=== PATIENT | male | born 1970 | race Caucasian/White ===

== ENCOUNTER 2018-03-30 06:29 | Emergency (ER) | payer OTHER ==
[2018-03-30] MEDS ORDERED: Cyclobenzaprine TAB* 10 MG PO ONE (06:47)
[2018-03-30] MEDS ORDERED: HYDROcodone/ACETAMIN 5-325 MG* 1 TAB PO ONE (06:48)
--- NOTE | 2018-03-30 08:26 | ED ---
Progress - Progress Note Progress Note: I supervised the PA and performed a history and physical exam on this patient. I performed the procedure on this patient. History: [employer] who routinely lifts heavy stuff with bilateral low back pain without radiation Physical exam: Tenderness and spasm and bilateral paralumbar musculature. No saddle anesthesia. Stands and walks normally. Plan: Trigger point injections here by me, treat symptomatically and refer to career technical education teacher. Procedure: Trigger point injection: The patient was consented and his bilateral lumbar musculature was cleaned with alcohol. Triggerpoints are identified and injected through a 25-gauge needle. A total of 5 cc of 1% lidocaine was mixed with 10 cc of 0.5% bupivacaine with epinephrine was utilized. The patient's pain was greatly improved after it this was massaged through the tissues. His range of motion improved. He tolerated this well without complication. Course/Dx - Diagnoses Provider Diagnoses: Muscle spasm Discharge - Sign-Out/Discharge Documenting (check all that apply): Patient Departure - Discharge Plan Condition: Stable Disposition: HOME Prescriptions: Cyclobenzaprine TAB* [Flexeril TAB*] 10 mg PO TID #21 tab Hydrocodone/Acetamin 10/325(NF [[place] 10/325 (NF)] 1 tab PO Q6H #12 tab MDD 4 Ketorolac TAB * [Toradol TAB *] 10 mg PO Q6H #16 tab predniSONE TAB* [Deltasone TAB*] 50 mg PO DAILY #5 tab MDD 1 Patient Education Materials: Muscle Spasm (ED), Lower Back Exercises (ED) Forms: *Work Release Referrals: Noe MATTSON,John Brown [Primary Care Provider] - Additional Instructions: Please see career technical education teacher and/or physical therapy for worsening symptoms Hydrocodone up to every 6 hours as needed for pain Toradol up to every 6 hours as needed for pain Please take these intermittently You may also take tylenol 650mg three times daily simultaneously with toradol Moist heat to the area 3 days off work Flexeril 10mg up to three times daily for muscle spasms Do not drive with these medications Gentle stretches will help - Billing Disposition and Condition Condition: STABLE Disposition: Home - Attestation Statements Document Initiated by Scribe: Yes Documenting Scribe: Keyanna Kraus Provider For Whom Scribe is Documenting (Include Credential): Dr. Marco Bentley MD Scribe Attestation: I, Keyanna Kraus, scribed for Dr. Marco Bentlye MD on 03/30/18 at 1447. Scribe Documentation Reviewed: Yes Provider Attestation: The documentation as recorded by the scribeKeyanna accurately reflects the service I personally performed and the decisions made by me, Dr. Marco Bentley MD
[2018-03-30] MEDS ORDERED: predniSONE TAB* 20 MG PO ONE (08:29)
[2018-03-30 08:37] VITALS: BP 149/84
[2018-03-30] MEDS ORDERED: Ketorolac INJ* 60 MG/2 ML VIAL IM ONE (08:38)
[2018-03-30] MEDS ORDERED: Acetaminophen TAB* 325 MG PO ONE (08:38)
--- NOTE | 2018-03-30 09:15 | ED ---
Back Pain - HPI Summary HPI Summary: Patient is a 48-year-old otherwise healthy male presenting to the ED with bilateral lower back pain acute onset this evening after working all night and standing on his feet. He also endorses lifting heavy objects throughout the evening. Denies any "popping sound." Denies any known injury. He states the back began to hurt him approximately at 9 PM and continued throughout his shift , only worsening. He is now endorsing pain 10/10, constant and throbbing. He endorses "spasms." He has never injured the back before. The pain is most notably located over the bilateral lower back without spinal involvement. Denies any foot drop, bladder or bowel dysfunction, numbness or tingling. - History of Current Complaint Chief Complaint: EDBackInjuryPain Stated Complaint: BACK INJURY Time Seen by Provider: 03/30/18 06:36 Hx Obtained From: Patient Onset/Duration: Sudden Onset Onset/Duration: Started Hours Ago Timing: Constant Back Pain Location: Is Discrete @ - lower back bilaterally Pain Intensity: 5 Pain Scale Used: 0-10 Numeric Character: Aching Aggravating Symptom(s): Movement Alleviating Symptom(s): Rest Associated Signs And Symptoms: Negative: Swelling, Redness, Bruising, Weakness, Numbness, Bladder Incontinence, Bowel Incontinence, Weight Loss, Pain with Weight Bearing - Risk Factors AAA Risk Factors: Negative TAD Risk Factors: Negative Cauda Equina Risk Factors: Negative Epidural Abscess Risk Factors: Negative - Allergies/Home Medications Allergies/Adverse Reactions: Allergies Allergy/AdvReac Type Severity Reaction Status Date / Time No Known Allergies Allergy Verified 03/13/16 10:23 PMH/Surg Hx/FS Hx/Imm Hx Previously Healthy: Yes GI History: Reports: Hx Gastroesophageal Reflux Disease, Hx Irritable Bowel - Immunization History Hx Pertussis Vaccination: No Immunizations Up to Date: Yes Infectious Disease History: No Infectious Disease History: Denies: Traveled Outside the [place] in Last 30 Days - Family History Known Family History: Positive: None - Denies family h/o heart disease/dm - Social History Occupation: Employed Full-time Lives: With Family Alcohol Use: Daily Alcohol Amount: 3-6 drinks per day Hx Substance Use: No Substance Use Type: Reports: None Hx Tobacco Use: No Smoking Status (MU): Never Smoked Tobacco Review of Systems Constitutional: Negative Negative: Fever, Chills, Fatigue, Skin Diaphoresis Negative: Palpitations, Chest Pain Negative: Shortness Of Breath, Cough Negative: Abdominal Pain, Vomiting, Diarrhea Genitourinary: Negative Positive: no symptoms reported, burning Positive: Arthralgia, Myalgia Negative: Weakness, Paresthesia, Numbness All Other Systems Reviewed And Are Negative: Yes Physical Exam Triage Information Reviewed: Yes Vital Signs On Initial Exam: Initial Vitals Temp Pulse Resp BP Pulse Ox 97.4 F 93 16 150/93 97 03/30/18 06:33 03/30/18 06:33 03/30/18 06:33 03/30/18 06:33 03/30/18 06:33 Vital Signs Reviewed: Yes Appearance: Positive: Well-Appearing, Well-Nourished Skin: Positive: Warm, Skin Color Reflects Adequate Perfusion Head/Face: Positive: Normal Head/Face Inspection Eyes: Positive: EOMI, NEISHA, Conjunctiva Clear Neck: Positive: Supple, No Lymphadenopathy Respiratory/Lung Sounds: Positive: Clear to Auscultation, Breath Sounds Present Cardiovascular: Positive: RRR, Pulses are Symmetrical in both Upper and Lower Extremities Musculoskeletal: Positive: Pain @ - bilateral lower back Neurological: Positive: Speech Normal Psychiatric: Positive: Normal, Affect/Mood Appropriate AVPU Assessment: Alert Diagnostics - Vital Signs Vital Signs Temp Pulse Resp BP Pulse Ox 03/30/18 09:06 97.7 F 82 16 149/84 95 03/30/18 08:36 97.7 F 82 16 149/84 95 03/30/18 06:33 97.4 F 93 16 150/93 97 - Laboratory Lab Statement: Any lab studies that have been ordered have been reviewed, and results considered in the medical decision making process. Back Pain Course/Dx - Course Course Of Treatment: In the course treatment, the patient is given Toradol, prednisone, Flexeril and hydrocodone. He has minimal relief with all of this. He continues to have back spasms. At this point, I have asked Dr. Bentley to perform lidocaine injections into the bilateral lower back. He continues to have pain, however at this point remains ambulatory. I've given him prescriptions for all the above medications. I have encouraged him to seek chiropractic health and/or PT. He is given a note for work 3 days and will follow-up with his PCP. - Diagnoses Differential Diagnosis/HQI/PQRI: Positive: Herniated Disc, Strain, Sprain Provider Diagnoses: Muscle spasm Discharge - Sign-Out/Discharge Documenting (check all that apply): Patient Departure - Discharge Plan Condition: Stable Disposition: HOME Prescriptions: Cyclobenzaprine TAB* [Flexeril TAB*] 10 mg PO TID #21 tab Hydrocodone/Acetamin 10/325(NF [[place] 10/325 (NF)] 1 tab PO Q6H #12 tab MDD 4 Ketorolac TAB * [Toradol TAB *] 10 mg PO Q6H #16 tab predniSONE TAB* [Deltasone TAB*] 50 mg PO DAILY #5 tab MDD 1 Patient Education Materials: Muscle Spasm (ED), Lower Back Exercises (ED) Forms: *Work Release Referrals: Noe MATTSON,John Brown [Primary Care Provider] - Additional Instructions: Please see career counselor and/or physical therapy for worsening symptoms Hydrocodone up to every 6 hours as needed for pain Toradol up to every 6 hours as needed for pain Please take these intermittently You may also take tylenol 650mg three times daily simultaneously with toradol Moist heat to the area 3 days off work Flexeril 10mg up to three times daily for muscle spasms Do not drive with these medications Gentle stretches will help - Billing Disposition and Condition Condition: STABLE Disposition: Home
== END 2018-03-30 09:06 | disposition home or self-care (01) ==
LOC: ED 06:29
DX: M62.830 Muscle spasm of back (principal); M54.5 Low back pain
CPT/HCPCS: 96372; 99282; A9270-GY; J1885; J7512